=== PATIENT | female | born 1960 | race Caucasian/White ===

== ENCOUNTER → 2024-02-20 16:10 | Outpatient (REF) | payer MEDICARE, OTHER, SELFPAY | LOC: RAD 16:10 | PROVIDERS: ATTENDING PHYSICIAN Physician Assistant | DX: M54.42 Lumbago with sciatica, left side (principal) | CPT/HCPCS: 72110 ==

== ENCOUNTER → 2024-11-11 10:49 | Outpatient (REF) | payer MEDICARE, OTHER, SELFPAY | LOC: WDC 10:49 | PROVIDERS: ATTENDING PHYSICIAN Physician Assistant | DX: Z12.31 Encounter for screening mammogram for malignant neoplasm of breast (principal) | CPT/HCPCS: 77063; 77067 ==

== ENCOUNTER → 2024-11-20 09:43 | Outpatient (REF) | payer MEDICARE, OTHER, SELFPAY | LOC: WDC 09:43 | PROVIDERS: ATTENDING PHYSICIAN Physician Assistant | DX: R92.8 Other abnormal and inconclusive findings on diagnostic imaging of breast (principal) | CPT/HCPCS: 76642 ==